=== PATIENT | female | born 2000 | race African-American/Black ===

== ENCOUNTER 2020-08-29 20:38 | Emergency (ER) | payer BC ==
[2020-08-29] MEDS ORDERED: Ketorolac Tromethamine 30 MG/ML VIAL ONE (21:18)
--- NOTE | 2020-08-29 21:19 | RAD ---
Right wrist 3 views: 08/29/2020 COMPARISON: None HISTORY: Fall, trauma, pain FINDINGS: There is no displaced fracture or dislocation. No radiopaque foreign body or subcutaneous g as. IMPRESSION: No acute fracture is evident. Recommend follow-up in 7-10 days if symptoms persist.
--- NOTE | 2020-08-29 21:20 | RAD ---
4 views right elbow: 08/29/2020 COMPARISON: None HISTORY: Injury, trauma, pain FINDINGS: No fracture or dislocation. No radiopaque foreign body or subcutaneous gas. The lateral exa mination demonstrates no elbow joint effusion. IMPRESSION: No acute findings.
--- NOTE | 2020-08-29 21:20 | RAD ---
2 views right forearm: 08/29/2020 HISTORY: Fall, trauma, pain FINDINGS: No displaced fracture or evidence of dislocation. IMPRESSION: No acute findings.
== END 2020-08-29 21:48 | disposition home or self-care (01) ==
LOC: ERS 20:38
DX: M25.531 Pain in right wrist (principal); W01.0XXA Fall on same level from slipping, tripping and stumbling without subsequent striking against object, initial encounter
CPT/HCPCS: 96372; J1885